=== PATIENT | male | born 1990 | race Caucasian/White ===

== ENCOUNTER 2021-10-24 21:27 | Emergency (ER) | payer OTHER ==
[~2021-10-24] VITALS: Ht 165.1 cm; Wt 108.9 kg
[2021-10-24 21:30] VITALS: BP_SYST 144
--- NOTE | 2021-10-24 21:30 | NUR ---
Patient triaged and placed in waiting room. VSS and patient appears in no acute distress at this time. Accompanied by fam member, awaiting available bed, and MD notified of need for MSE.
--- NOTE | 2021-10-24 22:30 | NUR ---
CALL PT NAME IN THE WAITING ROOM.NO ANSWER
--- NOTE | 2021-10-24 22:35 | NUR ---
CALL PT NAME IN THE WAITING ROOM.NO ANSWER
--- NOTE | 2021-10-24 22:40 | NUR ---
CALL PT NAME IN THE WAITING ROOM.NO ANSWER
== END 2021-10-24 22:40 | disposition left against medical advice (07) ==
LOC: SED 21:27
DX: S91.319A Laceration without foreign body, unspecified foot, initial encounter (principal); Z53.21 Procedure and treatment not carried out due to patient leaving prior to being seen by health care provider

== ENCOUNTER 2023-03-27 21:00 | Emergency (ER) | payer OTHER ==
[~2023-03-27] VITALS: Ht 165.1 cm; Wt 113.4 kg
[2023-03-27 21:32] VITALS: BP_SYST 128
--- NOTE | 2023-03-27 21:32 | NUR ---
Triaged and placed patient back to the waiting room. No acute respiratory distress at this time. VSS. Informed patient to notify ED staff for any changes in condition or worsening of symptoms while waiting to be seen by a provider. Patient verbalized understanding.
--- NOTE | 2023-03-27 23:21 | NUR ---
Patient placed in ER CHAIR 2 for evaluation. Report given to RYAN XIE for continuity of care. Instructed to notify ED staff for any changes in condition or worsening of symptoms. Patient verbalized understanding.
--- NOTE | 2023-03-27 23:53 | NUR ---
Dr. MCCONNELL at bedside examining the patient.
[2023-03-27] MEDS ORDERED: AMOX-520 PO (23:56)
[2023-03-28 00:01] VITALS: BP_SYST 128
--- NOTE | 2023-03-28 00:03 | NUR ---
Patient given written and verbal discharge instructions and verbalizes understanding. ER MD discussed with patient the results and treatment provided. Patient in stable condition. ID arm band removed. IV catheter removed intact and dressing applied, no active bleeding. Rx of AMAXICILLIN given. Patient educated on pain management and to follow up with PMD. Pain Scale . Opportunity for questions provided and answered. Medication side effect fact sheet provided.
== END 2023-03-28 00:02 | disposition home or self-care (01) ==
LOC: SED 21:00
DX: J03.90 Acute tonsillitis, unspecified (principal); R50.9 Fever, unspecified; R51.9 Headache, unspecified; Z79.899 Other long term (current) drug therapy; Z20.822 Contact with and (suspected) exposure to COVID-19
CPT/HCPCS: 36415; 99283